=== PATIENT | female | born 1985 ===

== ENCOUNTER 2017-03-28 06:06 | Emergency (ER) | payer OTHER ==
--- NOTE | 2017-03-28 06:30 | C.PDOC ---
History Of Present Illness Patient is a 31 y/o female who presents to the ED with complaints of general body aches, dry cough, and nasal and chest congestion since yesterday. Patient also notes fever and chills. Patient denies any recent travel, sick contact, SOB , or CP. No other physical complaints at this time. Time Seen by Provider: 03/28/17 06:20 Chief Complaint (Nursing): Cough, Cold, Congestion History Per: Patient History/Exam Limitations: no limitations Onset/Duration Of Symptoms: Days (yesterday) Current Symptoms Are (Timing): Still Present Location Of Pain: Sinus/es, Diffuse Myalgias Associated Symptoms: Fever, Chills, Sore Throat, Cough, Nasal Congestion Recent travel outside of the [place]: No Past Medical History Reviewed: Historical Data, Nursing Documentation, Vital Signs Vital Signs: Last Vital Signs Temp 98.8 F 03/28/17 06:13 Pulse 105 H 03/28/17 06:13 Resp 20 03/28/17 06:13 BP 114/65 03/28/17 06:13 Pulse Ox 98 03/28/17 06:37 - Medical History PMH: No Chronic Diseases Surgical History: No Surg Hx Family History: States: No Known Family Hx - Social History Hx Alcohol Use: No Hx Substance Use: No - Immunization History Hx Tetanus Toxoid Vaccination: No Hx Influenza Vaccination: No Hx Pneumococcal Vaccination: No Review Of Systems Constitutional: Positive for: Fever, Chills ENT: Positive for: Nose Congestion Cardiovascular: Negative for: Chest Pain Respiratory: Positive for: Cough. Negative for: Shortness of Breath Musculoskeletal: Positive for: Other (generalize body aches) Physical Exam - Physical Exam Appears: Well, Non-toxic, No Acute Distress Skin: Normal Color, Warm, Dry Head: Atraumatic, Normacephalic Eye(s): bilateral: Normal Inspection Nose: Discharge, Other (enlarged nasal turbinates) Oral Mucosa: Moist Cardiovascular: Rhythm Regular, No Murmur Respiratory: Normal Breath Sounds, No Rales, No Rhonchi, No Wheezing Neurological/Psych: Oriented x3, Normal Speech, Normal Cognition ED Course And Treatment O2 Sat by Pulse Oximetry: 98 Progress Note: Motrin PO administered. On re-eval, patient is feeling better and is okay with going home. Disposition - Disposition Referrals: [facility] [Outside] Disposition: HOME/ ROUTINE Disposition Time: 06:55 Condition: STABLE Additional Instructions: Increase fluids Bed rest TAke meds as prescribed Return to ER if worse Prescriptions: Benzonatate [Tessalon Perles] 100 mg PO TID #20 sgl Cetirizine HCl [Zyrtec] 10 mg PO DAILY #20 capsule Ibuprofen [Motrin] 1 tab PO TID PRN #20 tab PRN Reason: Pain Instructions: Upper Respiratory Infection (ED) Forms: [employer] ([place]) - Clinical Impression Clinical Impression: Upper respiratory infection - Scribe Statement The provider has reviewed the documentation as recorded by the Scribe Amercia Garvey All medical record entries made by the Scribe were at my direction and personally dictated by me. I have reviewed the chart and agree that the record accurately reflects my personal performance of the history, physical exam, medical decision making, and the department course for this patient. I have also personally directed, reviewed, and agree with the discharge instructions and disposition.
[2017-03-28 06:32] VITALS: BP 114/65; PULSE 105; RESP 20; TEMP 98.8; O2SAT 98
== END 2017-03-28 07:05 | disposition home or self-care (01) ==
LOC: C.ER 06:06
DX: J06.9 Acute upper respiratory infection, unspecified (principal)